=== PATIENT | male | born 1970 | race Hispanic/Latino ===

== ENCOUNTER 2017-06-24 13:17 | Inpatient (IN) | payer MEDICAID, OTHER ==
[2017-06-24 13:28] VITALS: O2SAT 95
--- NOTE | 2017-06-24 14:59 | C.PDOC ---
History Of Present Illness 46 year old male presents to the ER complaining of feeling depressed and suicidal, with a plan to overdose. Patient reports using 15 bags of IV heroin about 4-5 hours ago in an attempt to end his life. Further, he states if that did not work he planned to jump in front of a train. Also reports drinking 2 pints of vodka last night. Patient states recently he has felt increasingly stressed and as if he hit rock bottom. Denies any chest pain, shortness of breath, or other acute complaints. No hallucinations or homicidal ideation. No previous psychiatric admissions. Patient also reports smoking and requests nicotine patch for withdrawal as well as detox from substance/alcohol abuse. Time Seen by Provider: 06/24/17 14:08 Chief Complaint (Nursing): Psychiatric Evaluation History Per: Patient History/Exam Limitations: no limitations Onset/Duration Of Symptoms: Days Current Symptoms Are (Timing): Still Present Suicide/Self Injury Attempted (Context): Ingestion (IV heroin) Associated Symptoms: Depression, Suicidal Thoughts, Suicidal Plan Past Medical History Reviewed: Historical Data, Nursing Documentation, Vital Signs Vital Signs: Last Vital Signs Temp 97.9 F 06/24/17 16:50 Pulse 78 06/24/17 16:50 Resp 18 06/24/17 16:50 BP 135/87 06/24/17 16:50 Pulse Ox 95 06/24/17 16:50 - Medical History PMH: Depression Surgical History: No Surg Hx Family History: States: No Known Family Hx - Social History Hx Tobacco Use: Yes Hx Alcohol Use: Yes (drank last night) Hx Substance Use: Yes (cocaine, heroin) - Immunization History Hx Tetanus Toxoid Vaccination: No Hx Influenza Vaccination: No Hx Pneumococcal Vaccination: No Review Of Systems Except As Marked, All Systems Reviewed And Found Negative. Constitutional: Negative for: Fever Cardiovascular: Negative for: Chest Pain Respiratory: Negative for: Shortness of Breath Gastrointestinal: Negative for: Nausea, Vomiting Psych: Positive for: Depression, Suicidal ideation (with suicidal plan), Withdrawal (from alcohol and cigarettes) Physical Exam - Physical Exam Appears: Non-toxic, No Acute Distress Skin: Normal Color, Warm, Dry Head: Atraumatic, Normacephalic Eye(s): bilateral: Normal Inspection, PERRL, EOMI Neck: Normal ROM, Supple Chest: Symmetrical, No Tenderness Cardiovascular: Rhythm Regular, No Murmur Respiratory: Normal Breath Sounds, No Accessory Muscle Use Gastrointestinal/Abdominal: Normal Exam, Soft, No Tenderness Extremity: Normal ROM, Capillary Refill (< 2 sec), No Deformity, Other ( bilateral track mckay to forearms. No swelling, induration, or abscess formation ) Neurological/Psych: Oriented x3, Normal Speech Gait: Steady ED Course And Treatment - Laboratory Results Result Diagrams: 06/24/17 14:57 06/24/17 14:57 Lab Interpretation: Abnormal (tox + opiates, cocaine) O2 Sat by Pulse Oximetry: 95 (RA) Pulse Ox Interpretation: Normal Reevaluation Time: 16:57 Reassessment Condition: Improved - Physician Consult Information Outcome Of Conversation: 1700: d/w Crisis, ok to admit Medical Decision Making Medical Decision Making: Time: 14:10 Initial Plan: * Labs * Placed on 1:1 * Pending crisis evaluation Labs reviewed: Utox positive for cocaine and opiates. Otherwise blood work is wnl Disposition Doctor Will See Patient In The: Hospital Counseled Patient/Family Regarding: Studies Performed, Diagnosis - Disposition Disposition: HOSPITALIZED Disposition Time: 16:58 Condition: GOOD Forms: [email or web address] (Mongolian) - Clinical Impression Clinical Impression: Heroin abuse, Cocaine abuse, Depression - Scribe Statement The provider has reviewed the documentation as recorded by the Nery Coleman Provider Attestation: All medical record entries made by the Nery were at my direction and personally dictated by me. I have reviewed the chart and agree that the record accurately reflects my personal performance of the history, physical exam, medical decision making, and the department course for this patient. I have also personally directed, reviewed, and agree with the discharge instructions and disposition.
[2017-06-24 15:04] LABS: BASO # 0.1 K/uL (0.0-0.2); BASO % 0.7 % (0.0-2.0); EOS # 0.1 K/uL (0.0-0.7); EOS % 1.4 % (0.0-4.0); HEMOGLOBIN 14.1 g/dL (12.0-18.0); LYMPH # 3.6 K/uL (1.0-4.3); LYMPH % 34.7 % (20.0-40.0); MEAN CELL VOLUME 89.4 fL (80.0-94.0); MEAN CORPUSCULAR HEMOGLOBIN 30.9 pg (27.0-31.0); MEAN CORPUSCULAR HGB CONC 34.5 g/dL (33.0-37.0); MEAN PLATELET VOLUME 8.8 fL (7.2-11.7); MONO # 0.9 K/uL (0.0-0.8); MONO % 8.2 % (0.0-10.0); NEUT # 5.7 K/uL (1.8-7.0); RBC 4.57 Mil/uL (4.40-5.90); RED CELL DISTRIBUTION WIDTH 13.7 % (11.5-14.5); WHITE BLOOD COUNT 10.4 K/uL (4.8-10.8)
[2017-06-24 15:14] LABS: ALB/GLOB RATIO 0.9 (1.0-2.1); ALBUMIN 4.3 g/dL (3.5-5.0); ALT/SGPT 48 U/L (21-72); AST/SGOT 38 U/L (17-59); BLOOD UREA NITROGEN 14 mg/dL (9-20); CALCIUM 9.1 mg/dl (8.6-10.4); GFR AFRICAN-AMERICAN > 60; GFR NON-AFRICAN AMERICAN > 60
[2017-06-24 15:20] LABS: SQUAMOUS EPITHIAL < 1 /hpf (0-5); URINE BACTERIA RARE (<OCC); URINE BILIRUBIN NEGATIVE (NEGATIVE); URINE BLOOD NEGATIVE (NEGATIVE); URINE CLARITY Hazy (Clear); URINE COLOR Yellow (YELLOW); URINE GLUCOSE (UA) NORMAL (Normal); URINE HYALINE CAST 0-2 /lpf (0-2); URINE LEUKOCYTE ESTERASE 3+ Leu/uL (Negative); URINE NITRATE NEGATIVE (NEGATIVE); URINE PROTEIN NEGATIVE (NEGATIVE); URINE UROBILINOGEN NORMAL mg/dL (0.2-1.0)
[2017-06-24 15:34] LABS: BARBITURATES, UR NEGATIVE (NEGATIVE); PHENCYCLIDINE, UR NEGATIVE (NEGATIVE)
[2017-06-24 15:54] LABS: BENZODIAZEPINES, UR POSITIVE (NEGATIVE); OPIATES, UR POSITIVE (NEGATIVE)
--- NOTE | 2017-06-25 10:05 | PCM.PSYCH ---
Initial Psychiatric Evaluation - Initial Psychiatric Evaluation Type of Admission: Voluntary Legal Status: Capacity Chief Complaint (in patient's own words): I need help for my addiction History of Present Illness and Precipitating Events: Patient is a 46-year-old male, single, employed, lives home alone came to the ED because of intrusive thoughts of suicide in addition to heroin abuse. As per the ED note, pt stated that he had a "nervous breakdown today," but unable to identify the catalyst of this episode. When asked to describe the "nervous breakdown," pt stated he has "been using heroin everyday, and I'm homeless, and the last few days I've just not found much to live for anymore, and I was thinking of ending it." Pt stated he has not planned a suicide attempt , but "I took 15 bag of heroin at once, and I didn't care if I didn't wake up." Pt states he has never attempted suicide before, nor has he been diagnosed with a mental health condition or been in treatment of same. Pt stated the last time he had suicidal thoughts was in his youth, but unable to recall specific details of surrounding events. 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 PT stated he has been abusing heroin daily x3 years, on average using 5-10 bags daily, but injected 15 bags today at noon. Pt also reported "sniffing a line" of cocaine last night, but does not typically use. Pt also reported consuming 3 pints of vodka last night, and that was his first drink in 3 years. He reports depressed mood and feelings of hopelessness and helplessness. Patient remained isolated, confined and withdrawn. Patient reports withdrawal symptoms including nausea, headaches, cramps and sweating. However, he denies any AVH or any paranoia. PMH: Back injury s/p back Sx Current Medications: Active Medications Generic Name Dose Route Start Last Admin Trade Name Freq PRN Reason Stop Dose Admin Clonidine HCl 0.1 mg 06/24/17 18:54 06/25/17 05:39 Catapres PO 0.1 mg Q8 PRN Administration COWS Score More or Equal to 5 Dicyclomine HCl 10 mg 06/24/17 18:55 Bentyl PO Q6 PRN Muscle spasm Hydroxyzine HCl 25 mg 06/24/17 18:55 06/24/17 19:02 Atarax PO 25 mg Q6 PRN Administration Anxiety Ibuprofen 600 mg 06/24/17 18:56 Motrin Tab PO TID PRN Pain, moderate (4-7) Loperamide HCl 2 mg 06/24/17 18:54 Imodium PO Q8 PRN Diarrhea Lorazepam 2 mg 06/24/17 19:14 Ativan PO 06/25/17 11:00 Q6H PRN alcohol withdrawal symptoms Ondansetron HCl 4 mg 06/24/17 18:55 Zofran Tab PO Q8H PRN Nausea/Vomiting Pneumococcal Polyvalent Vaccine 0.5 ml 06/27/17 10:00 Pneumovax 23 Vaccine IM 06/27/17 10:01 .ONCE ONE Past Psychiatric History - Past Psychiatric History Previous Treatment History: None Pertinent Medical Hx (Current Medical&Sleep Prob, Allergies): Allergies Allergy/AdvReac Type Severity Reaction Status Date / Time No Known Allergies Allergy Verified 06/24/17 13:28 No Known Home Med 06/24/17 Review of Systems - Review of Systems All systems: reviewed and no additional remarkable complaints except - Constitutional Constitutional: Chills, Sweats, Weakness - Psychiatric Psychiatric: Anxiety, Depression, Hopelessness, Irritability, Suicidal Ideation Mental Status Examination - Personal Presentation Personal Presentation: Looks stated age - Affect Affect: Depressed - Motor Activity Motor Activity: Calm - Reliability in Providing Information Reliability in Providing Information: Good - Speech Speech: Organized - Mood Mood: Depressed, Anxious - Formal Thought Process Formal Thought Process: No Impairment - Obsessions/Compulsions Obsessions: No Compulsions: No - Cognitive Functions Orientation: Person, Place, Situation, Time Sensorium: Alert Attention/Concentration: Attentive Abstract Thinking: [place] Estimate of Intelligence: Below average Judgement: Imparied, as evidence by: Poor judgement, Imparied, as evidence by: Lack of insight into illness - Risk Risk: Suicidal, Withdrawal, Diminished functioning - Limitations Limitations: Living alone DSM 5 DX - DSM 5 DSM 5 Diagnosis: Major depressive disorder recurrent severe without psychotic features Opioid use disorder severe Opioid withdrawal Cocaine use disorder moderate - Recommended/Plan of Treatment Treatment Recommendations and Plan of Treatment: Major depressive 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
--- NOTE | 2017-06-25 16:00 | PCM.BM ---
<Lorena Hawk - Last Filed: 06/25/17 15:50> Treatment Plan Problems - Problems identified on initial assessmt Depression Date Initiated: 06/24/17 Time Initiated: 20:00 Assessment reference: NA Status: Active Substance Abuse Date Initiated: 06/24/17 Time Initiated: 20:00 Assessment reference: NA Status: Active Treatment assets and liabiliti Patient Assests: adapts well, cooperative, educated, ADL independent, physically healthy, negotiates basic needs, cognitively intact Patient Liabilities: live alone, financial problems, substance abuse (Opiates, Heroin, Benzo) - Milieu Protocol Maintain good personal hygiene: daily Encourage regular showers, daily Remind patient to perform daily oral care, daily Assist patient to perform ADL's (Self) Conduct patient checks and document Observation sheet: Q15 minutes (Safety) Maintain personal safety: every shift Educate patient to report safety concerns to staff, every shift Monitor environment for contraband/sharps Medication safety: Monitor for expected outcome, potential side effects: every shift, Assess barriers to learning: every shift, Assess readiness for medication education: every shift <Gissel Waller - Last Filed: 06/26/17 22:21> - Diagnosis (1) Bipolar disorder, curr episode mixed, severe, w/o psychotic features Status: Acute Interventions: 06/26/17 22:22 * Assess/adjust medications daily and /or as needed * See patient on an individual basis 7x/week to assess level of manic behaviors and stability * Discuss risks, benefits, side effects and alternatives of medications * (2) Cocaine abuse Status: Acute Interventions: 06/26/17 22:22 * Assess 7x/week regarding severity of withdrawal * Educate regarding risks, benefits, side effects and alternatives of medications * Use Motivational Interviewing for abstinence * Use CBT for relapse prevention * Medication management for withdrawal symptoms * Encourage medication assisted treatment * (3) Heroin abuse Status: Acute Interventions: 06/26/17 22:22 * Assess 7x/week regarding severity of withdrawal * Educate regarding risks, benefits, side effects and alternatives of medications * Use Motivational Interviewing for abstinence * Use CBT for relapse prevention * Medication management for withdrawal symptoms * Encourage medication assisted treatment * <Madeleine Beasley - Last Filed: 06/27/17 09:53> Family Contact Family involvement: Famliy/SO not involved - Goals for Treatment Patient goals for treatment: "I want to leave." Discharge/Continuing Care - Education Needs Education Needs: Patient Medication, Patient Coping Skills, Patient Placement options, Patient Community resources - Discharge Discharge Criteria: Tolerates medication w/o severe side effects, No longer exhibiting s/s of withdrawal, Reduction of target symptoms Discharge to:: Other (Pt stated he might go back to living with girlfriend, however is unsure.) - Treatment Team Participation Discussed with Family/SO: No Was Patient/Family/SO present at Treatment Team Meeting: No (Pt refused to attend meeting and requested discharge.)
--- NOTE | 2017-06-26 09:48 | PCM.PYCHPN ---
Psychiatric Progress Note - Psychiatric Progress Note Patient seen today, length of contact: 15 minutes Patient Chief Complaint: I am feeling very anxious.' Problems Identified/Issues Discussed: Patient feeling very anxious today. Had racing thoughts and was unable to focus. Patient was very adamant about signing out AMA due to his agitation and restlessness. Denies any auditory or visual hallucinations. States that he " just wants to feel better" and is agreeable to a trial of Depakote in order to stabilize his mood. Patient reports withdrawal symptoms including nausea, headaches, cramps and sweating. Patient is compliant with medications and denies any side effects. Symptoms are improving but need more time to stabilize. Support and psychoeducation given. Medication Change: Yes (Methadone taper, start depakote) Medical Record Reviewed: Yes Mental Status Examination - Cognitive Function Orientation: Person, Place, Situation, Time Memory: Intact Attention: WNL Concentration: Poor Association: WNL Fund of Knowledge: Poor - Mood Mood: Depressed, Anxious - Affect Affect: Broad, Depressed - Speech Speech: Pressured - Formal Thought Process Formal Thought Process: Flight of ideas - Suicidal Ideation Suicidal Ideation: No - Homicidal Ideation Homicidal Ideation: No Goal/Treatment Plan - Goal/Treatment Plan Need for Continued Stay: Severe depression anxiety, Severe functional impairment Progress Toward Problem(s) and Goals/Treatment Plan: Major depressive disorder recurrent severe without psychotic features -CBT -Psychoeducation -Supportive therapy, group therapy, individual therapy -d/c Zoloft 50 mg PO Daily -Start Depakote 250 mg PO BID -Start Klonopin 1 mg PO BID -Trazodone 50 mg by mouth daily at bedtime -Hydroxyzine 25 mg PO Q6 hr prn -Gabapentin 300 mg PO TID -Seroquel 100 mg PO QHS Opioid use disorder severe -CBT -Psychoeducation -Supportive therapy, individual therapy -Use LA for abstinence Opioid withdrawal -CBT -Psychoeducation -Supportive therapy, individual therapy -Clonidine when necessary -methadone taper -prn meds Cocaine use disorder moderate -Monitor signs and symptoms -Use LA for abstinence - Smoking Cessation Smoking Cessation Initiated: No
[2017-06-26] MEDS: Divalproex 250 mg DR Tab PO SCH ×2 (10:46→17:54)
[2017-06-27 06:39] VITALS: BP 104/62; PULSE 60; RESP 18; TEMP 97.6
[2017-06-27] MEDS: Divalproex 250 mg DR Tab PO SCH (09:15)
--- NOTE | 2017-06-27 09:42 | PCM.PYCHDC ---
Mental Status Examination - Mental Status Examination Orientation: Person, Place Memory: Intact Mood: Neutral Affect: Constricted Speech: Soft Attention: WNL Concentration: WNL Association: WNL Fund of Knowledge: WNL Formal Thought Process: No Impairment Description of patient's judgement and insight: good, fair Psychotic Thoughts and Behaviors: denies any AVH Suicidal Ideation: No Current Homicidal Ideation?: No Discharge Summary - Discharge Note Reason for Hospitalization: Patient is a 46-year-old male, single, employed, lives home alone came to the ED because of intrusive thoughts of suicide in addition to heroin abuse. As per the ED note, pt stated that he had a "nervous breakdown today," but unable to identify the catalyst of this episode. When asked to describe the "nervous breakdown," pt stated he has "been using heroin everyday, and I'm homeless, and the last few days I've just not found much to live for anymore, and I was thinking of ending it." Pt stated he has not planned a suicide attempt , but "I took 15 bag of heroin at once, and I didn't care if I didn't wake up." Pt states he has never attempted suicide before, nor has he been diagnosed with a mental health condition or been in treatment of same. Pt stated the last time he had suicidal thoughts was in his youth, but unable to recall specific details of surrounding events. 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 PT stated he has been abusing heroin daily x3 years, on average using 5-10 bags daily, but injected 15 bags today at noon. Pt also reported "sniffing a line" of cocaine last night, but does not typically use. Pt also reported consuming 3 pints of vodka last night, and that was his first drink in 3 years. He reports depressed mood and feelings of hopelessness and helplessness. Patient remained isolated, confined and withdrawn. Patient reports withdrawal symptoms including nausea, headaches, cramps and sweating. However, he denies any AVH or any paranoia. Consultations:: List each consultation separately and include: 1. Reason for request. 2. Findings. 3. Follow-up Summary of Hospital Course include:: 1. Description of specific treatment plan utilized for patients during their course of treatmen. 2. Summarize the time- course for resolution of acute symptoms and/or regressed behaviors. 3. Describe issues identified and worked on during hospitalization. 4. Describe medication utilized. 5. Describe medical problems identified and treated. 6. Reassessment of suicide risk Summary of Hospital Course: During the course of his stay, patient (pt) started progressively improving and he no longer remained irritable, depressed, and suicidal. His mood was improved and he started attending groups and meetings and started socializing. Patient denied any feelings of hopelessness, helplessness, and worthlessness, denied any problem with the sleep or appetite, denied suicidal ideation or homicidal ideation. Pt denied any auditory or visual hallucinations. Some changes were made in his current medications and patient was discharged on following medications. He tolerated these medications very well and denied any side effects. Pt stated that he will follow-up with [facility] on his own. - Diagnosis (1) Bipolar disorder, curr episode mixed, severe, w/o psychotic features Status: Acute (2) Cocaine abuse Status: Acute (3) Heroin abuse Status: Acute - Final Diagnosis (DSM 5) Condition upon Discharge: GOOD DSM 5: Bipolar disorder mixed severe without psychotic features Opioid use disorder severe Opioid withdrawal Cocaine use disorder moderate Disposition: HOME/ ROUTINE Follow-up Treatment Plan: Education: Pt was educated and counseled about the risks and benefits of taking and not taking medications. Pt was educated and counseled about the risks of drinking and abusing drugs. Pt was educated and counseled to go to the ER or call 911 if pt develop suicidal ideation or homicidal ideation, worsening of symptoms or severe side effects of the meds. Prescriptions/Medication Reconciliation: Divalproex [Depakote DR] 500 mg PO BID #60 tcp Gabapentin [Neurontin] 300 mg PO BID #60 cap QUEtiapine [Seroquel] 200 mg PO HS #30 tab - Smoking Cessation Smoking Cessation Medication prescribed: No - Antipsychotic Medications Pt discharged on 2 or more routine antipsychotic medications: No
[2017-06-27] MEDS ORDERED: Influenza Vaccine 60 mcg/0.5 mL SYR (4YR UP) IM ONE (10:00)
[2017-06-27] MEDS ORDERED: Divalproex 250 mg DR Tab PO SCH (10:00)
[2017-06-27] MEDS ORDERED: Pneumococcal 23-Valent Vaccine IM ONE (10:00)
== END 2017-06-27 10:05 | disposition home or self-care (01) | DRG 895 ==
LOC: C.ER 13:17 → C.5E 16:56
PROVIDERS: ADMIT Psychiatry & Neurology Psychiatry; ATTEND Psychiatry & Neurology Psychiatry
PROC: HZ2ZZZZ Detoxification Services for Substance Abuse Treatment (ICD-10-PCS; principal; 2017-06-24)
PROC: HZ52ZZZ Individual Psychotherapy for Substance Abuse Treatment, Cognitive-Behavioral (ICD-10-PCS; 2017-06-24)
PROC: HZ42ZZZ Group Counseling for Substance Abuse Treatment, Cognitive-Behavioral (ICD-10-PCS; 2017-06-24)
PROC: HZ59ZZZ Individual Psychotherapy for Substance Abuse Treatment, Supportive (ICD-10-PCS; 2017-06-24)
PROC: HZ56ZZZ Individual Psychotherapy for Substance Abuse Treatment, Psychoeducation (ICD-10-PCS; 2017-06-24)
PROC: HZ46ZZZ Group Counseling for Substance Abuse Treatment, Psychoeducation (ICD-10-PCS; 2017-06-24)
DX: F11.23 Opioid dependence with withdrawal (principal); R45.851 Suicidal ideations; F14.10 Cocaine abuse, uncomplicated; F31.63 Bipolar disorder, current episode mixed, severe, without psychotic features; F17.210 Nicotine dependence, cigarettes, uncomplicated

== ENCOUNTER 2018-01-27 13:03 | Inpatient (IN) | payer MEDICAID ==
--- NOTE | 2018-01-27 14:11 | C.PDOC ---
History Of Present Illness 47-year-old male, presents to the emergency department with complaints of depression, but has no suicidal ideation or plan at this time. Patient states that he has a problem with opiate use and is requesting opiate detox. Denies m[address] pain, SOB, HI <Yessi Houston - Last Filed: 01/27/18 15:57> History Per: Patient History/Exam Limitations: no limitations Current Symptoms Are (Timing): Still Present <Yessi Houston - Last Filed: 01/27/18 15:57> <Bridgette Douglas - Last Filed: 02/01/18 02:57> Time Seen by Provider: 01/27/18 13:54 Chief Complaint (Nursing): Psychiatric Evaluation Past Medical History Reviewed: Historical Data, Nursing Documentation, Vital Signs Vital Signs: Last Vital Signs Temp 98.6 F 01/27/18 13:29 Pulse 82 01/27/18 13:29 Resp 18 01/27/18 13:29 BP 123/83 01/27/18 13:29 Pulse Ox 98 01/27/18 13:29 - Medical History PMH: Depression Denies: Diabetes, Hepatitis, HIV, HTN, Seizures, Sexually Transmitted Disease Surgical History: Appendectomy - [facility] DETOXIFICATION SERVICES FOR SUBSTANCE ABUSE TREATMENT (06/24/17) GROUP [employer] SALES CONSULTANT FOR SUBSTANCE ABUSE TREATMENT, PSYCHOEDUCATION (06/24/17) GROUP [employer] SALES CONSULTANT FOR SUBSTANCE ABUSE, COGNITIVE BEHAVIORAL (06/24/17) INDIV PSYCHOTHERAPY FOR SUBSTANCE ABUSE TREATMENT, SUPPORT (06/24/17) INDIV PSYCHOTHERAPY FOR SUBSTANCE ABUSE, COGNITIV BEHAVIORAL (06/24/17) INDIV PSYCHOTHERAPY FOR SUBSTANCE ABUSE, PSYCHOEDUCATION (06/24/17) Family History: States: No Known Family Hx - Social History Hx Tobacco Use: Yes Hx Alcohol Use: No Hx Substance Use: Yes - Immunization History Hx Tetanus Toxoid Vaccination: Yes Hx Influenza Vaccination: No Hx Pneumococcal Vaccination: Yes <Yessi Houston - Last Filed: 01/27/18 15:57> Vital Signs: Last Vital Signs Temp 97.5 F L 01/31/18 08:29 Pulse 76 01/31/18 08:29 Resp 18 01/31/18 08:29 BP 154/84 H 01/31/18 08:29 Pulse Ox 98 01/31/18 08:29 - [facility] Procedures DETOXIFICATION SERVICES FOR SUBSTANCE ABUSE TREATMENT (06/24/17) GROUP [employer] RET[employer] SALES CONSULTANT FOR SUBSTANCE ABUSE TREATMENT, PSYCHOEDUCATION (06/24/17) GROUP [employer] RET[employer] SALES CONSULTANT FOR SUBSTANCE ABUSE, COGNITIVE BEHAVIORAL (06/24/17) INDIV PSYCHOTHERAPY FOR SUBSTANCE ABUSE TREATMENT, SUPPORT (06/24/17) INDIV PSYCHOTHERAPY FOR SUBSTANCE ABUSE, COGNITIV BEHAVIORAL (06/24/17) INDIV PSYCHOTHERAPY FOR SUBSTANCE ABUSE, PSYCHOEDUCATION (06/24/17) <Bridgette Douglas - Last Filed: 02/01/18 02:57> Review Of Systems Constitutional: Negative for: Fever Respiratory: Negative for: Shortness of Breath Musculoskeletal: Negative for: Back Pain Skin: Negative for: Rash Neurological: Negative for: Weakness, Numbness Psych: Positive for: Suicidal ideation. Negative for: Psychosis, Withdrawal <Yessi Houston - Last Filed: 01/27/18 15:57> Physical Exam - Physical Exam Appears: Non-toxic, No Acute Distress Skin: Warm, Dry, No Rash Head: Atraumatic, Normacephalic Eye(s): bilateral: Normal Inspection, PERRL, EOMI Nose: Normal Oral Mucosa: Moist Lips: Normal Appearing Neck: Normal ROM, Supple Cardiovascular: Rhythm Regular, No Friction Rub, No Murmur Respiratory: Normal Breath Sounds, No Accessory Muscle Use Gastrointestinal/Abdominal: Soft, No Tenderness Back: Normal Inspection Extremity: Normal ROM, No Deformity Neurological/Psych: Oriented x3, Normal Speech, Normal Motor <Yessi Houston - Last Filed: 01/27/18 15:57> ED Course And Treatment - Laboratory Results Result Diagrams: 01/27/18 14:00 01/27/18 14:00 O2 Sat by Pulse Oximetry: 98 Pulse Ox Interpretation: Normal (RA) <Yessi Houston - Last Filed: 01/27/18 15:57> - Laboratory Results Result Diagrams: 01/27/18 14:00 01/27/18 14:00 <Bridgette Douglas - Last Filed: 02/01/18 02:57> Medical Decision Making Medical Decision Making: The patient is medically cleared for psych eval. <Yessi Houston - Last Filed: 01/27/18 15:57> Disposition - Disposition Disposition Time: 15:59 - POA Present On Arrival: None <Yessi Houston - Last Filed: 01/27/18 15:57> <Bridgette Douglas - Last Filed: 02/01/18 02:57> - Disposition Disposition: HOSPITALIZED Condition: STABLE - Clinical Impression Clinical Impression: Opiate dependence - Scribe Statement The provider has reviewed the documentation as recorded by the Scribe (Oleg Vásquez) All medical record entries made by the Scribe were at my direction and personally dictated by me. I have reviewed the chart and agree that the record accurately reflects my personal performance of the history, physical exam, medical decision making, and the department course for this patient. I have also personally directed, reviewed, and agree with the discharge instructions and disposition. <Yessi Houston - Last Filed: 01/27/18 15:57> - PA / ROTARY DUMP OPERATOR / Resident Statement MD/ has reviewed & agrees with the documentation as recorded. <Bridgette Douglas - Last Filed: 02/01/18 02:57>
[2018-01-27 14:14] LABS: BASO % 0.4 % (0.0-2.0); EOS # 0.1 K/uL (0.0-0.7); EOS % 1.1 % (0.0-4.0); HEMOGLOBIN 13.7 g/dL (12.0-18.0); LYMPH # 2.1 K/uL (1.0-4.3); LYMPH % 25.4 % (20.0-40.0); MEAN CELL VOLUME 87.5 fL (80.0-94.0); MEAN CORPUSCULAR HEMOGLOBIN 30.5 pg (27.0-31.0); MEAN CORPUSCULAR HGB CONC 34.9 g/dL (33.0-37.0); MEAN PLATELET VOLUME 8.6 fL (7.2-11.7); MONO # 0.8 K/uL (0.0-0.8); MONO % 9.3 % (0.0-10.0); NEUT # 5.2 K/uL (1.8-7.0); NEUT % 63.8 % (50.0-75.0); NRBC % 0.1 % (0.0-2.0); RBC 4.49 Mil/uL (4.40-5.90); RED CELL DISTRIBUTION WIDTH 13.9 % (11.5-14.5); WHITE BLOOD COUNT 8.1 K/uL (4.8-10.8)
[2018-01-27 14:38] LABS: ALB/GLOB RATIO 1.1 (1.0-2.1); ALBUMIN 4.1 g/dL (3.5-5.0); ALT/SGPT 40 U/L (21-72); AST/SGOT 28 U/L (17-59); BLOOD UREA NITROGEN 9 mg/dL (9-20); CALCIUM 9.2 mg/dl (8.6-10.4); GFR NON-AFRICAN AMERICAN > 60
[2018-01-27 14:51] LABS: URINE BACTERIA RARE (<OCC); URINE BILIRUBIN NEGATIVE (NEGATIVE); URINE BLOOD NEGATIVE (NEGATIVE); URINE CLARITY Clear (Clear); URINE COLOR Amber (YELLOW); URINE GLUCOSE (UA) NORMAL (Normal); URINE LEUKOCYTE ESTERASE NEG Leu/uL (Negative); URINE PROTEIN 1+ mg/dL (NEGATIVE)
[2018-01-27 15:36] LABS: BARBITURATES, UR NEGATIVE (NEGATIVE); BENZODIAZEPINES, UR NEGATIVE (NEGATIVE); PHENCYCLIDINE, UR NEGATIVE (NEGATIVE)
[2018-01-27 15:37] LABS: OPIATES, UR POSITIVE (NEGATIVE)
--- NOTE | 2018-01-27 16:14 | PCM.BM ---
<Melvin Ruiz - Last Filed: 01/27/18 16:13> Treatment Plan Problems - Problems identified on initial assessmt potential for opiates withdrawal Date Initiated: 01/27/18 Time Initiated: 16:14 Status: Active Treatment assets and liabiliti Patient Assests: adapts well, cooperative, educated, ADL independent, physically healthy, negotiates basic needs, cognitively intact Patient Liabilities: substance abuse - Milieu Protocol Maintain good personal hygiene: daily Encourage regular showers, daily Remind patient to perform daily oral care, daily Assist patient to perform ADL's Maintain personal safety: every shift Educate patient to report safety concerns to staff, every shift Monitor environment for contraband/sharps Medication safety: Monitor for expected outcome, potential side effects: every shift, Assess barriers to learning: every shift, Assess readiness for medication education: every shift <Chika Marin - Last Filed: 01/28/18 23:09> - Diagnosis (1) Opiate dependence Status: Acute Interventions: 01/28/18 23:09 * Assess 7x/week regarding severity of withdrawal * Educate regarding risks, benefits, side effects and alternatives of medications * Use Motivational Interviewing for abstinence * Use CBT for relapse prevention * Medication management for withdrawal symptoms * Encourage medication assisted treatment * (2) Depression Status: Acute Interventions: 01/28/18 23:10 * Assess/adjust medications daily and /or as needed * See patient on an individual basis 7x/week to assess symptoms of depression * Monitor for side effects & effectiveness of medications * <Yas Suarez - Last Filed: 01/30/18 09:32> Family Contact Family involvement: Famliy/SO not involved - Goals for Treatment Patient goals for treatment: Complete detox and transition to long-term rehab program. Discharge/Continuing Care - Education Needs Education Needs: Patient Medication, Patient Diagnosis/Disease Process, Patient Coping Skills, Patient Anger Management skills, Patient Placement options, Patient Community resources - Discharge Discharge Criteria: No longer exhibiting s/s of withdrawal, Reduction of target symptoms Discharge to:: Substance Abuse Rehab - Treatment Team Participation Patient/Family/SO Statement: 01/30/18 09:31 "I wanna go to the [facility]." Discussed with Family/SO: No Was Patient/Family/SO present at Treatment Team Meeting: Yes
[2018-01-28] MEDS ORDERED: Benzocaine/Menthol (Cepacol) Lozenge PO PRN (00:07)
[2018-01-28] MEDS ORDERED: Aluminum Hydroxide/Magnesium Hydroxide Susp (30 mL) PO PRN (00:07)
--- NOTE | 2018-01-28 10:58 | PCM.PSYCH ---
Initial Psychiatric Evaluation - Initial Psychiatric Evaluation Type of Admission: Voluntary Legal Status: Capacity Chief Complaint (in patient's own words): "I need some clean time." History of Present Illness and Precipitating Events: Patient was seen, chart reviewed, case discussed with staff. Patient is a single 46-year-old male with PMH depression, anxiety comes to [facility] detox for heroin abuse. He was last at [facility] in May of this year for his recurrent depression. At that time, he was UDS positive for heroin and cocaine, as well as having suicidal ideations without a plan. He continues to use 6-10 bags IV heroin daily despite going to 3 detoxes in the last year. He has a previous history of alcohol abuse, including an OD episode for 30 decades, but successful detoxed after a 21-day inpatient stay at [facility]. His longer period of sobriety was 5.5 years. 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 Admits to smoking 1 ppd cigs, denies other illicit drugs, current EtOH. Denies SI/HI, AVH. Last use was immediately prior to admission. he currently lives with his girlfriend who supports him financially and collects unemployment. He has 1 adult child and hopes to go to a longer term IOP after discharge. PMH: Back injury s/p back surgery Psych: depression, anxiety, previously on Xanax Med: currently taking none All: none Legal: previous assault and battery charge -> 6 month incarceration in 1992 FamHx: denies psych or medical Hx ED: BAL <10, UDS + for opiates. Methadone taper started Current Medications: Active Medications Generic Name Dose Route Start Last Admin Trade Name Freq PRN Reason Stop Dose Admin Al Hydrox/Mg Hydrox/Simethicone 30 ml 01/28/18 00:07 Maalox 30 Ml PO TID PRN Indigestion / Heartburn Benzocaine/Menthol 1 javier 01/28/18 00:07 Cepacol Sore Throat PO QID PRN Sore Throat Clonidine HCl 0.1 mg 01/27/18 18:56 01/27/18 21:00 Catapres PO 0.1 mg Q8 PRN Administration opiate withdrawal Hydroxyzine HCl 25 mg 01/27/18 18:56 01/27/18 21:00 Atarax PO 25 mg Q8 PRN Administration Anxiety Loperamide HCl 2 mg 01/28/18 00:07 Imodium PO Q8 PRN Diarrhea Methadone HCl 20 mg 01/28/18 10:00 01/28/18 09:11 Methadone PO 02/01/18 09:59 20 mg DAILY ABBY Administration Taper Nicotine 1 patch 01/28/18 10:00 01/28/18 09:10 Nicoderm Cq TD 1 patch DAILY ABBY Administration Ondansetron HCl 4 mg 01/28/18 00:07 Zofran Tab PO Q8 PRN Nausea/Vomiting Pseudoephedrine HCl 60 mg 01/28/18 00:07 Sudafed Tab PO QID PRN Nasal/Sinus Congestion Trazodone HCl 100 mg 01/28/18 10:03 Desyrel PO HS PRN Insomnia Past Psychiatric History - Past Psychiatric History Pertinent Medical Hx (Current Medical&Sleep Prob, Allergies): Allergies Allergy/AdvReac Type Severity Reaction Status Date / Time No Known Allergies Allergy Verified 01/27/18 13:34 No Known Home Med 01/27/18 Review of Systems - Psychiatric Psychiatric: Abnormal Sleep Pattern, Anxiety, Depression, Irritability. absent: Hallucinations, Homicidal Ideation, Hopelessness, Suicidal Ideation Mental Status Examination - Personal Presentation Personal Presentation: Looks stated age - Affect Affect: Broad - Motor Activity Motor Activity: Calm - Reliability in Providing Information Reliability in Providing Information: Good - Speech Speech: Organized - Mood Mood: Anxious - Formal Thought Process Formal Thought Process: No Impairment - Obsessions/Compulsions Obsessions: No Compulsions: No - Cognitive Functions Orientation: Person, Place, Situation, Time Sensorium: Alert Attention/Concentration: Attentive Abstract Thinking: [place] Estimate of Intelligence: Below average Judgement: Intact, as evidence by: Insight regarding need for hospitalization Memory: Recent intact, as evidence by: Ability to recall events of the day, Remote impaired as evidenced by: Inability to recall historical events - Risk Risk: Withdrawal, Diminished functioning - Strength & Assets Inventory Strength & Assets Inventory: Cooperative DSM 5 DX - DSM 5 DSM 5 Diagnosis: Opioid use disorder -severe Opioid withdrawal Major depressive disorder, recurrent severe without psychotic features Tobacco use disorder - severe - Recommended/Plan of Treatment Treatment Recommendations and Plan of Treatment: Taper with Methadone Gabapentin for augmentation if needed As needed medications All risks, benefits, and alternatives of the meds discussed, and the patient agreed and understood Attend group and activities Suportive therapy and psychoeducation DE for abstinenece CBT for relapse prevetnion Encourage MAT Refer to rehab or IOP, and self-help groups Smoking cessation with DE Nicotine patch daily 46 min Projected ELOS: 4 days - Smoking Cessation Smoking Cessation Initiated: Yes
--- NOTE | 2018-01-29 13:37 | PCM.PYCHPN ---
Psychiatric Progress Note - Psychiatric Progress Note Patient seen today, length of contact: 16 min Patient Chief Complaint: "I was withdrawing" Problems Identified/Issues Discussed: The pt is seen, chart reviewed, case discussed with staff. The pt is compliant with medications and reports no side-effects. Symptoms are improving but needs more time to stabilize. He had a verbal argument with the nurses as he couldn't wait until he gets his methadone. He apologized several times and warned about unit rules. Pt attends groups and activities. Support given, psycho-education provided. After care discussed. Medication Change: Yes (detox changes daily) Medical Record Reviewed: Yes Mental Status Examination - Cognitive Function Orientation: Person, Place, Situation, Time Memory: Intact Attention: Poor Concentration: Poor Association: WNL Fund of Knowledge: WNL - Mood Mood: Anxious - Affect Affect: Broad - Speech Speech: Appropriate - Formal Thought Process Formal Thought Process: No Impairment - Suicidal Ideation Suicidal Ideation: No - Homicidal Ideation Homicidal Ideation: No Goal/Treatment Plan - Goal/Treatment Plan Need for Continued Stay: Discharge may exacerbated symptoms, Severe functional impairment Progress Toward Problem(s) and Goals/Treatment Plan: Continue medications Support and psychoeducation daily Attend groups and activities daily After care planning by LUCY
--- NOTE | 2018-01-30 14:58 | PCM.PYCHPN ---
Psychiatric Progress Note - Psychiatric Progress Note Patient seen today, length of contact: 16 min Patient Chief Complaint: I am still withdrawing.' Problems Identified/Issues Discussed: Patient seen and evaluated, chart reviewed and discussed with the nurse. Patient reports withdrawal symptoms including anxiety, and headaches but denies any other withdrawal symptoms. He denies any feelings of hopelessness or helplessness, denies any manic or psychotic symptom. He denies any suicidal ideation or homicidal ideation. He is tolerating the withdrawal protocol very well and denies any side effects. Supportive therapy and psychoeducation were given Medication Change: Yes (detox changes daily) Medical Record Reviewed: Yes Mental Status Examination - Cognitive Function Orientation: Person, Place, Situation, Time Memory: Intact Attention: Poor Concentration: Poor Association: WNL Fund of Knowledge: WNL - Mood Mood: Anxious - Affect Affect: Broad - Speech Speech: Appropriate - Formal Thought Process Formal Thought Process: No Impairment - Suicidal Ideation Suicidal Ideation: No - Homicidal Ideation Homicidal Ideation: No Goal/Treatment Plan - Goal/Treatment Plan Need for Continued Stay: Discharge may exacerbated symptoms, Severe functional impairment Progress Toward Problem(s) and Goals/Treatment Plan: Opioid use disorder -severe Opioid withdrawal Major depressive disorder, recurrent severe without psychotic features Tobacco use disorder - severe Taper with Methadone Gabapentin for augmentation if needed As needed medications All risks, benefits, and alternatives of the meds discussed, and the patient agreed and understood Attend group and activities Suportive therapy and psychoeducation MN for abstinenece CBT for relapse prevetnion Encourage MAT Refer to rehab or IOP, and self-help groups Smoking cessation with MN Nicotine patch daily - Smoking Cessation Smoking Cessation Initiated: Yes
--- NOTE | 2018-01-31 08:20 | PCM.PYCHDC ---
Mental Status Examination - Mental Status Examination Orientation: Person Discharge Summary - Discharge Note Consultations:: List each consultation separately and include: 1. Reason for request. 2. Findings. 3. Follow-up Summary of Hospital Course include:: 1. Description of specific treatment plan utilized for patients during their course of treatmen. 2. Summarize the time- course for resolution of acute symptoms and/or regressed behaviors. 3. Describe issues identified and worked on during hospitalization. 4. Describe medication utilized. 5. Describe medical problems identified and treated. 6. Reassessment of suicide risk Summary of Hospital Course: [facility] - Diagnosis (1) Opiate dependence Current Visit: Yes Status: Acute (2) Depression Current Visit: No Status: Acute - Final Diagnosis (DSM 5) Condition upon Discharge: STABLE Disposition: HOME/ ROUTINE Follow-up Treatment Plan: Continue medications Support and psychoeducation daily Attend groups and activities daily After care planning by LUCY Prescriptions/Medication Reconciliation: traZODone [Desyrel] 100 mg PO HS PRN #30 tab PRN Reason: Insomnia
[2018-01-31 08:31] VITALS: BP 154/84; PULSE 76; RESP 18; TEMP 97.5; O2SAT 98
== END 2018-01-31 10:48 | disposition home or self-care (01) | DRG 744 ==
LOC: C.ER 13:03 → C.7D 16:02
PROVIDERS: ADMIT Psychiatry & Neurology Psychiatry; ATTEND Psychiatry & Neurology Psychiatry
PROC: HZ52ZZZ Individual Psychotherapy for Substance Abuse Treatment, Cognitive-Behavioral (ICD-10-PCS; principal; 2018-01-27)
PROC: HZ2ZZZZ Detoxification Services for Substance Abuse Treatment (ICD-10-PCS; 2018-01-27)
PROC: HZ59ZZZ Individual Psychotherapy for Substance Abuse Treatment, Supportive (ICD-10-PCS; 2018-01-27)
PROC: HZ56ZZZ Individual Psychotherapy for Substance Abuse Treatment, Psychoeducation (ICD-10-PCS; 2018-01-27)
PROC: HZ42ZZZ Group Counseling for Substance Abuse Treatment, Cognitive-Behavioral (ICD-10-PCS; 2018-01-27)
PROC: HZ46ZZZ Group Counseling for Substance Abuse Treatment, Psychoeducation (ICD-10-PCS; 2018-01-27)
PROC: GZHZZZZ Group Psychotherapy (ICD-10-PCS; 2018-01-27)
PROC: GZ58ZZZ Individual Psychotherapy, Cognitive-Behavioral (ICD-10-PCS; 2018-01-27)
PROC: GZ56ZZZ Individual Psychotherapy, Supportive (ICD-10-PCS; 2018-01-27)
DX: F11.23 Opioid dependence with withdrawal (principal); F33.2 Major depressive disorder, recurrent severe without psychotic features; F17.210 Nicotine dependence, cigarettes, uncomplicated; F41.9 Anxiety disorder, unspecified; G47.00 Insomnia, unspecified

== ENCOUNTER 2018-03-09 16:50 | Inpatient (IN) | payer MEDICAID ==
--- NOTE | 2018-03-09 18:29 | C.PDOC ---
History Of Present Illness 47 years old male presents to ED requesting detox from heroin. Patient states last use was yesterday morning at 9AM. Patient also reports symptoms of nausea. Denies chest pain, sob, SI, HI, vomiting, or any other complaints. Patient was admitted in january for detox and depression. Time Seen by Provider: 03/09/18 17:22 Chief Complaint (Nursing): Substance Abuse History Per: Patient History/Exam Limitations: no limitations Onset/Duration Of Symptoms: Days (1) Current Symptoms Are (Timing): Still Present Suicide/Self Injury Attempted (Context): None Modifying Factor(s): Narcotics (Heroin ) Associated Symptoms: denies: Suicidal Thoughts, Suicidal Plan Involuntary Hold By: None Recent travel outside of the [place]: No Past Medical History Reviewed: Historical Data, Nursing Documentation, Vital Signs Vital Signs: Last Vital Signs Temp 98.7 F 03/09/18 17:03 Pulse 91 H 03/09/18 17:03 Resp 18 03/09/18 17:03 BP 111/84 03/09/18 17:03 Pulse Ox 99 03/09/18 17:03 - Medical History PMH: Depression Surgical History: Appendectomy - [facility] Procedures DETOXIFICATION SERVICES FOR SUBSTANCE ABUSE TREATMENT (01/27/18) GROUP CIG[employer] PACKER AND SHADER FOR SUBSTANCE ABUSE TREATMENT, PSYCHOEDUCATION (01/27/18) GROUP CIGAR PACKER AND SHADER FOR SUBSTANCE ABUSE, COGNITIVE BEHAVIORAL (01/27/18) GROUP PSYCHOTHERAPY (01/27/18) INDIV PSYCHOTHERAPY FOR SUBSTANCE ABUSE TREATMENT, SUPPORT (01/27/18) INDIV PSYCHOTHERAPY FOR SUBSTANCE ABUSE, COGNITIV BEHAVIORAL (01/27/18) INDIV PSYCHOTHERAPY FOR SUBSTANCE ABUSE, PSYCHOEDUCATION (01/27/18) INDIVIDUAL PSYCHOTHERAPY, COGNITIVE-BEHAVIORAL (01/27/18) INDIVIDUAL PSYCHOTHERAPY, SUPPORTIVE (01/27/18) Family History: States: No Known Family Hx - Social History Hx Tobacco Use: Yes Hx Alcohol Use: No Hx Substance Use: No - Immunization History Hx Tetanus Toxoid Vaccination: Yes Hx Influenza Vaccination: No Hx Pneumococcal Vaccination: No Review Of Systems Constitutional: Negative for: Fever, Chills Gastrointestinal: Positive for: Nausea. Negative for: Vomiting, Abdominal Pain, Diarrhea Skin: Negative for: Rash Neurological: Negative for: Weakness, Numbness Psych: Negative for: Suicidal ideation Physical Exam - Physical Exam Appears: Non-toxic, No Acute Distress Skin: Warm, Dry, No Rash Head: Atraumatic, Normacephalic Eye(s): bilateral: Normal Inspection, PERRL, EOMI Oral Mucosa: Dry Neck: Normal ROM, Supple Chest: Symmetrical, No Tenderness Cardiovascular: Rhythm Regular, No Murmur Respiratory: Normal Breath Sounds, No Rales, No Rhonchi, No Wheezing Gastrointestinal/Abdominal: Bowel Sounds (Active/Normal), Soft, No Tenderness, No Distention Back: Normal Inspection, No CVA Tenderness Extremity: Normal ROM Extremity: Bilateral: Atraumatic, Normal Color And Temperature, Normal ROM Pulses: Left Radial: Normal, Right Radial: Normal Neurological/Psych: Oriented x3, Normal Speech Gait: Steady ED Course And Treatment - Laboratory Results Result Diagrams: 03/09/18 18:37 03/09/18 18:37 O2 Sat by Pulse Oximetry: 99 (RA) Pulse Ox Interpretation: Normal Medical Decision Making Medical Decision Making: Plan: * Blood work * Zofran * Urinalysis * Crisis Notified Progress: * Patient is medically cleared from crisis. 20:16 -- 1 mg PO of Ativan ordered Patient is accepted to admission by Dr. Byrd Disposition Counseled Patient/Family Regarding: Studies Performed, Diagnosis - Disposition Disposition: HOSPITALIZED Disposition Time: 21:15 Condition: STABLE - POA Present On Arrival: None - Clinical Impression Clinical Impression: Heroin abuse, Drug dependence - Scribe Statement The provider has reviewed the documentation as recorded by the Nery Ashford All medical record entries made by the Meghnaiblivia were at my direction and personally dictated by me. I have reviewed the chart and agree that the record accurately reflects my personal performance of the history, physical exam, medical decision making, and the department course for this patient. I have also personally directed, reviewed, and agree with the discharge instructions and disposition.
[2018-03-09 18:32] LABS: URINE BILIRUBIN NEGATIVE (NEGATIVE); URINE BLOOD NEGATIVE (NEGATIVE); URINE CLARITY Clear (Clear); URINE COLOR Yellow (YELLOW); URINE GLUCOSE (UA) NORMAL (Normal); URINE LEUKOCYTE ESTERASE NEG Leu/uL (Negative); URINE PROTEIN NEGATIVE (NEGATIVE); URINE UROBILINOGEN NORMAL mg/dL (0.2-1.0)
[2018-03-09 18:39] LABS: BASO # 0.1 K/uL (0.0-0.2); BASO % 0.6 % (0.0-2.0); EOS % 0.3 % (0.0-4.0); HEMOGLOBIN 15.9 g/dL (12.0-18.0); LYMPH # 2.4 K/uL (1.0-4.3); LYMPH % 30.4 % (20.0-40.0); MEAN CELL VOLUME 87.7 fL (80.0-94.0); MEAN CORPUSCULAR HEMOGLOBIN 30.1 pg (27.0-31.0); MEAN CORPUSCULAR HGB CONC 34.3 g/dL (33.0-37.0); MEAN PLATELET VOLUME 8.3 fL (7.2-11.7); MONO # 0.5 K/uL (0.0-0.8); MONO % 6.7 % (0.0-10.0); NRBC % 0.1 % (0.0-2.0); RBC 5.28 Mil/uL (4.40-5.90); RED CELL DISTRIBUTION WIDTH 14.6 % (11.5-14.5)
[2018-03-09 18:40] LABS: BARBITURATES, UR NEGATIVE (NEGATIVE); BENZODIAZEPINES, UR NEGATIVE (NEGATIVE); PHENCYCLIDINE, UR NEGATIVE (NEGATIVE)
[2018-03-09 18:41] LABS: OPIATES, UR POSITIVE (NEGATIVE)
[2018-03-09 18:52] LABS: ALB/GLOB RATIO 1.2 (1.0-2.1); ALT/SGPT 55 U/L (21-72); AST/SGOT 33 U/L (17-59); BLOOD UREA NITROGEN 8 mg/dL (9-20); CALCIUM 9.3 mg/dl (8.6-10.4); GFR NON-AFRICAN AMERICAN > 60
[2018-03-09] MEDS ORDERED: Aluminum Hydroxide/Magnesium Hydroxide Susp (30 mL) PO PRN (22:31)
--- NOTE | 2018-03-10 08:00 | PCM.BM ---
<Belkis Jaquez - Last Filed: 03/10/18 07:59> Treatment Plan Problems - Problems identified on initial assessmt potential for opiate withdrawals Date Initiated: 03/10/18 Assessment reference: NA Status: Active Treatment assets and liabiliti Patient Assests: adapts well, cooperative, educated, ADL independent, physically healthy, negotiates basic needs, cognitively intact Patient Liabilities: substance abuse, other - Milieu Protocol Maintain good personal hygiene: daily Encourage regular showers, daily Remind patient to perform daily oral care, daily Assist patient to perform ADL's Conduct patient checks and document Observation sheet: Q15 minutes Maintain personal safety: every shift Educate patient to report safety concerns to staff, every shift Monitor environment for contraband/sharps Medication safety: Monitor for expected outcome, potential side effects: every shift, Assess barriers to learning: every shift, Assess readiness for medication education: every shift <Chika Marin - Last Filed: 03/10/18 13:37> - Diagnosis (1) Bipolar disorder, curr episode mixed, severe, w/o psychotic features Status: Acute Interventions: 03/10/18 13:37 * Assess/adjust medications daily and /or as needed * See patient on an individual basis 7x/week to assess level of manic behaviors and stability * Discuss risks, benefits, side effects and alternatives of medications * (2) Opiate dependence Status: Acute Interventions: 03/10/18 13:37 * Assess 7x/week regarding severity of withdrawal * Educate regarding risks, benefits, side effects and alternatives of medications * Use Motivational Interviewing for abstinence * Use CBT for relapse prevention * Medication management for withdrawal symptoms * Encourage medication assisted treatment * <Yas Suarez - Last Filed: 03/10/18 14:14> Family Contact Family involvement: Famliy/SO not involved - Goals for Treatment Patient goals for treatment: Complete detox and transition to short term rehab program. Discharge/Continuing Care - Education Needs Education Needs: Patient Medication, Patient Diagnosis/Disease Process, Patient Coping Skills, Patient Anger Management skills, Patient Placement options, Patient Community resources - Discharge Discharge Criteria: No longer exhibiting s/s of withdrawal, Reduction of target symptoms Discharge to:: Substance Abuse Rehab - Treatment Team Participation Patient/Family/SO Statement: 03/10/18 14:14 "I wanna go to either [facility] or [facility]." Discussed with Family/SO: No Was Patient/Family/SO present at Treatment Team Meeting: Yes
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
--- NOTE | 2018-03-11 14:09 | PCM.PYCHPN ---
Psychiatric Progress Note - Psychiatric Progress Note Patient seen today, length of contact: 16 min Patient Chief Complaint: "I'm not well, can't sleep well" Problems Identified/Issues Discussed: The pt is seen, chart reviewed, case discussed with staff. Support and psychoeducation given, CBT and NE used briefly No new symptoms reported, improving slowly and needs more time No SEs from medications, risks discussed. After care discussed Medication Change: Yes (detox changes daily) Medical Record Reviewed: Yes Mental Status Examination - Cognitive Function Orientation: Person, Place, Situation, Time Memory: Intact Attention: WNL Concentration: WNL Association: WNL Fund of Knowledge: WNL - Mood Mood: Anxious - Affect Affect: Constricted - Speech Speech: Appropriate - Formal Thought Process Formal Thought Process: No Impairment - Suicidal Ideation Suicidal Ideation: No - Homicidal Ideation Homicidal Ideation: No Goal/Treatment Plan - Goal/Treatment Plan Need for Continued Stay: Discharge may exacerbated symptoms, Severe functional impairment Progress Toward Problem(s) and Goals/Treatment Plan: Taper with methadone Gabapentin for augmentation if needed As needed medications All risks, benefits and alternatives of the meds discussed, and the pt agreed and understood. Attend groups and activities Supportive therapy and psychoeducation NE for abstinence CBT for relapse prevention Encourage MAT Refer to rehab or IOP, and self-help groups Teach healthy lifestyle methods, i.e. diet, exercise, meditation Smoking cessation with NE Nicotine patch if needed
[2018-03-12 08:49] VITALS: BP 110/80; PULSE 79; RESP 18; TEMP 98; O2SAT 100
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
== END 2018-03-12 08:15 | disposition home or self-care (01) | DRG 772 ==
LOC: C.ER 16:50 → C.7D 21:29
PROVIDERS: ADMIT Psychiatry & Neurology Psychiatry; ATTEND Psychiatry & Neurology Psychiatry
PROC: HZ2ZZZZ Detoxification Services for Substance Abuse Treatment (ICD-10-PCS; principal; 2018-03-09)
PROC: HZ46ZZZ Group Counseling for Substance Abuse Treatment, Psychoeducation (ICD-10-PCS; 2018-03-09)
PROC: GZ3ZZZZ Medication Management (ICD-10-PCS; 2018-03-09)
PROC: HZ81ZZZ Medication Management for Substance Abuse Treatment, Methadone Maintenance (ICD-10-PCS; 2018-03-09)
PROC: HZ80ZZZ Medication Management for Substance Abuse Treatment, Nicotine Replacement (ICD-10-PCS; 2018-03-09)
PROC: HZ59ZZZ Individual Psychotherapy for Substance Abuse Treatment, Supportive (ICD-10-PCS; 2018-03-09)
DX: F11.23 Opioid dependence with withdrawal (principal); F31.63 Bipolar disorder, current episode mixed, severe, without psychotic features; F43.10 Post-traumatic stress disorder, unspecified; G47.00 Insomnia, unspecified; F17.210 Nicotine dependence, cigarettes, uncomplicated; Z62.810 Personal history of physical and sexual abuse in childhood